=== PATIENT | male | born 1945 | race Two or more races ===

== ENCOUNTER 2019-11-28 23:55 | Emergency (ER) | payer OTHER, MEDICAID ==
[~2019-11-28] VITALS: Ht 162.6 cm; Wt 83.9 kg
[2019-11-29 00:55] VITALS: BP 135/87
== END 2019-11-29 03:45 | disposition home or self-care (01) ==
LOC: ER 23:55
DX: S01.01XA Laceration without foreign body of scalp, initial encounter (principal); S09.8XXA Other specified injuries of head, initial encounter; X58.XXXA Exposure to other specified factors, initial encounter; Y93.89 Activity, other specified; Y92.89 Other specified places as the place of occurrence of the external cause; Y99.8 Other external cause status
CPT/HCPCS: 12002; 70450